=== PATIENT | male | born 1945 | race Caucasian/White ===

== ENCOUNTER 2024-04-08 16:18 | Inpatient (IN) | payer MEDICARE ==
[~2024-04-08 16:18] MED LIST: Iopamidol-370 76% 500 ML MDV (1 ML CHARGE) ONE
[2024-04-08] MEDS ORDERED: Morphine 4 MG/ML VIAL ONE ×2 (16:53→17:56)
[2024-04-08] MEDS ORDERED: Ondansetron PF 4 MG/2 ML Vial ONE (16:53)
[2024-04-08 17:57] LABS: #Basophils 0.04 10x3/uL (0.0-0.2); #Eosinophils Less than 0.03 10x3/uL (0.0-0.7); %Basophils 0.2 % (0.0-1.0); %Eosinophils 0.1 % (0.0-10.0); %Monocytes 6.8 % (0.0-10.0); Hematocrit 42.9 % (42.0-52.0); Hemoglobin 14.6 g/dL (14.0-18.0); Mean Corpuscular Hemoglobin 31.6 pg (27.0-31.0); Mean Corpuscular Volume 92.9 fL (78.0-98.0); Mean Platelet Volume 9.9 fL (7.4-10.4); Platelet Count 285 10x3/uL (130-400); RBC Distribution Width 13.1 % (11.5-14.5); Red Blood Cell (RBC) Count 4.62 mill/uL (4.70-6.10)
[2024-04-08 18:11] LABS: Prothrombin Time 13.5 sec (12.0-14.7)
[2024-04-08 18:12] LABS: PTT 25.6 sec (22.9-36.1)
[2024-04-08 18:16] LABS: ALT (SGPT) 26 U/L (8-55); AST (SGOT) 36 U/L (5-34); Albumin 3.7 g/dL (3.4-4.8); Alkaline Phosphatase 60 U/L (40-110); Anion Gap 14 mmol/L (10-20); BUN (Urea Nitrogen) 14 mg/dL (8.4-25.7); Bilirubin, Total 0.5 mg/dL (0.2-1.2); Calc. Creatinine Clearance 0 mL/min (70-130); Calcium 8.4 mg/dL (7.8-10.44); Carbon Dioxide 21 mmol/L (23-31); Chloride 106 mmol/L (98-107); Estimated GFR 89; Globulin 2.3 g/dL (2.4-3.5); Glucose 122 mg/dL (83-110); Potassium 3.5 mmol/L (3.5-5.1); Sodium 137 mmol/L (136-145)
[2024-04-08] MEDS ORDERED: Morphine 2 MG/ML VIAL SLOW IVP PRN (18:31)
[2024-04-08] MEDS ORDERED: Ipratropium/Albuterol 3 ML NEB NEB PRN (18:31)
[2024-04-08] MEDS ORDERED: Ondansetron PF 4 MG/2 ML Vial IVP PRN (18:31)
[2024-04-08] MEDS ORDERED: hydrALAZINE 20 MG/ML VIAL SLOW IVP PRN (18:31)
[2024-04-08] MEDS ORDERED: Acetaminophen 325 MG TAB PO PRN (18:31)
[2024-04-08] MEDS ORDERED: Ondansetron ODT 4 MG TAB PO PRN (18:31)
[2024-04-08] MEDS ORDERED: traMADol HCl 50 MG TAB PO PRN (18:51)
[2024-04-08 19:57] VITALS: BMI 28.4
[2024-04-08] MEDS: HYDROcodone/Acetaminophen 5/325 mg Tablet PO PRN (21:24)
[2024-04-08] MEDS: Methocarbamol 1 GM in Sodium Chloride 0.9% 100 ML IVPB SCH (21:25)
[2024-04-08] MEDS: Ketorolac Tromethamine 30 MG (1 mL) VIAL IVP SCH (23:34)
[2024-04-09] MEDS: Methocarbamol 500 MG TAB PO PRN (05:14)
[2024-04-09 06:48] LABS: #Basophils Less than 0.03 10x3/uL (0.0-0.2); %Basophils 0.2 % (0.0-1.0); %Eosinophils 0.5 % (0.0-10.0); %Lymphocytes 9.9 % (21.0-51.0); %Monocytes 10.8 % (0.0-10.0); %Neutrophils 78.2 % (42.0-75.0); Hemoglobin 13.1 g/dL (14.0-18.0); Mean Corpuscular HGB CONC 34.5 g/dL (32.0-36.0); Mean Corpuscular Hemoglobin 31.7 pg (27.0-31.0); Mean Platelet Volume 10.1 fL (7.4-10.4); Platelet Count 244 10x3/uL (130-400); RBC Distribution Width 13.1 % (11.5-14.5); Red Blood Cell (RBC) Count 4.13 mill/uL (4.70-6.10)
[2024-04-09 07:01] LABS: Anion Gap 11 mmol/L (10-20); BUN (Urea Nitrogen) 14 mg/dL (8.4-25.7); Calc. Creatinine Clearance 91 mL/min (70-130); Calcium 7.9 mg/dL (7.8-10.44); Carbon Dioxide 24 mmol/L (23-31); Chloride 104 mmol/L (98-107); Estimated GFR 90; Glucose 106 mg/dL (83-110); Potassium 3.9 mmol/L (3.5-5.1); Sodium 135 mmol/L (136-145)
[2024-04-09] MEDS: Enoxaparin 40 MG (0.4 mL) SYRINGE SC SCH (09:13)
[2024-04-10] MEDS: Acetaminophen 325 MG TAB PO SCH (07:25)
[2024-04-10] MEDS: Ibuprofen 600 MG TAB PO SCH (07:25)
[2024-04-10] MEDS: Polyethylene Glycol 3350 17 GM Packet PO SCH (09:12)
[2024-04-10] MEDS: Senokot S 8.6-50 MG TAB PO SCH (09:12)
[2024-04-10] MEDS: Famotidine 20 MG TAB PO SCH (09:12)
[2024-04-11 07:41] LABS: #Basophils 0.04 10x3/uL (0.0-0.2); %Basophils 0.4 % (0.0-1.0); %Eosinophils 3.9 % (0.0-10.0); %Lymphocytes 12.2 % (21.0-51.0); %Monocytes 9.8 % (0.0-10.0); %Neutrophils 73.4 % (42.0-75.0); Hematocrit 31.1 % (42.0-52.0); Mean Corpuscular HGB CONC 35.4 g/dL (32.0-36.0); Mean Corpuscular Hemoglobin 31.4 pg (27.0-31.0); Mean Corpuscular Volume 88.9 fL (78.0-98.0); Mean Platelet Volume 10.2 fL (7.4-10.4); Platelet Count 203 10x3/uL (130-400); RBC Distribution Width 12.9 % (11.5-14.5)
[2024-04-11 07:56] LABS: Anion Gap 13 mmol/L (10-20); BUN (Urea Nitrogen) 15 mg/dL (8.4-25.7); Calc. Creatinine Clearance 99 mL/min (70-130); Calcium 7.8 mg/dL (7.8-10.44); Carbon Dioxide 22 mmol/L (23-31); Chloride 107 mmol/L (98-107); Estimated GFR 92; Glucose 103 mg/dL (83-110); Potassium 3.8 mmol/L (3.5-5.1); Sodium 138 mmol/L (136-145)
[2024-04-11 09:07] VITALS: BP 134/82; TEMP 98.1
== END 2024-04-11 12:20 | disposition home or self-care (01) | DRG 200 ==
LOC: ERS 16:18 → SURG B 18:40
PROVIDERS: ADMIT Specialist; ATTEND Specialist
DX: S27.0XXA Traumatic pneumothorax, initial encounter (principal); S22.41XA Multiple fractures of ribs, right side, initial encounter for closed fracture; W11.XXXA Fall on and from ladder, initial encounter; Z98.890 Other specified postprocedural states; Z79.899 Other long term (current) drug therapy; Z96.643 Presence of artificial hip joint, bilateral
CPT/HCPCS: 36415; 70450; 71045; 71260; 72125; 74177; 80048; 80053; 85025; 85610; 85730; G0390; J1650; J1885; J2272; J2405; J2800; Q9967